=== PATIENT | male | born 1995 | race African-American/Black ===

== ENCOUNTER 2016-10-02 11:10 | Emergency (ER) | payer OTHER ==
[~2016-10-02] VITALS: Ht 177.8 cm; Wt 83.2 kg
[2016-10-02 11:21] VITALS: TEMP 36.8; Ht 177.8 cm; Wt 83.2 kg
--- NOTE | 2016-10-02 12:48 | EMERGENCY ROOM VISIT NOTE ---
History Report prepared by Kyleigh: Madelyn Kearney Under the Supervision of: Dr. Santhosh Lassiter M.D. First contact with patient: 12:13 Chief Complaint: URINARY SYMPTOMS Stated Complaint: FREQ. URINATION Nursing Triage Summary: PT PRESENTS WITH C/O FREQUENT URINATION FOR THE LAST TWO WEEKS WOULD LIKE TO SPEAK TO DOCTOR FOR FURTHER INFORMATION History of Present Illness The patient is a 21 year old male who presents to the Emergency Room with complaints of persistent urinary frequency for the past two weeks. The patient states that two months ago he was treated for chlamydia with one dose of Doxycycline. He notes that he is concerned for STDs today. The patient notes dysuria today, but denies any fever, chills, or penile drip. He denies any other symptoms. Source of History: patient Onset: two weeks Position: other (global) Quality: other (urinary frequency) Timing: other (persistent) Associated Symptoms: + urinary symptoms (dysuria), No chills, No fevers Review of Systems All systems have been listed, reviewed, and are negative other than those previously mentioned. Please see Additional Medical History Sheet. Past Medical & Surgical Medical Problems: (1) No active medical problems Family History No significant family history Social History Smoking Status: Never Smoker Smokeless Tobacco Use: No Alcohol Use: none Marital Status: single Housing Status: lives with roommate Occupation Status: [employer] student Current/Historical Medications Scheduled Doxycycline Hyclate (Doxycycline Hyclate), 1 TAB PO BID Allergies Coded Allergies: No Known Allergies (Unverified , 10/02/16) Physical Exam Vital Signs Date Time Temp Pulse Resp B/P Pulse Ox O2 Delivery O2 Flow Rate FiO2 10/02/16 13:44 54 18 115/70 96 10/02/16 12:43 50 16 112/68 97 Room Air 10/02/16 11:21 36.8 58 16 126/64 97 Room Air Physical Exam GENERAL: Patient awake, alert, oriented x 3. Patient follows commands. Patient does not appear toxic. Patient is adequately hydrated and well- nourished. SKIN: No erythema, pallor, cyanosis or rash HEENT: Normal head, pupils equal, reactive to light and accommodation. Neck: Without adenopathy, no neck vein distention. LUNGS: Clear to auscultation. No wheezes, no rales, no rhonchi. HEART: No murmurs. No gallops. No rubs ABDOMEN: No masses, no rebound, no hepatomegaly or splenomegaly. GENITALIA: Normal external appearance. No signs of active infections or lesions. Above the penis there is a small area of folliculitis. No sign of inguinal adenopathy. EXTREMITIES: No signs of trauma. No pedal or pretibial edema. No calf or thigh tenderness. NEUROLOGIC: Cranial nerves II-XII within normal limits. No gross motor sensory function deficits. Medical Decision & Procedures Laboratory Results Test 10/02/16 11:27 10/02/16 12:20 Urine Color YELLOW Urine Appearance CLEAR (CLEAR) Urine pH 6.0 (4.5-7.5) Urine Specific [place] 1.008 (1.000-1.030) Urine Protein NEG (NEG) Urine Glucose (UA) NEG (NEG) Urine Ketones NEG (NEG) Urine Occult Blood NEG (NEG) Urine Nitrite NEG (NEG) Urine Bilirubin NEG (NEG) Urine Urobilinogen NEG (NEG) Urine Leukocyte Esterase NEG (NEG) Laboratory results as stated above per my review. ED Course 1213: Past medical records reviewed. The patient was evaluated in room C11B. A complete history and physical examination was performed. 1327: I reevaluated the patient and he is resting comfortably. I discussed all the exam findings with him and I discussed the treatment plan. He verbalized complete understanding and agreement. He is ready to go home. Medical Decision Nurses notes reviewed. Medical history sheet reviewed. Differential diagnosis includes but is not limited to: Chlamydia, GC, nonspecific urethritis, UTI. The patient is here with dysuria. He was treated approximately 2 months ago with a 1 time dose of doxycycline. The patient has no purulence or adenopathy. Urinalysis appears normal. Cultures for Chlamydia and GC are pending. The patient will be given a seven-day course of doxycycline. Impression Primary Impression: Nonspecific urethritis Scribe Attestation The scribe's documentation has been prepared under my direction and personally reviewed by me in its entirety. I confirm that the note above accurately reflects all work, treatment, procedures, and medical decision making performed by me. Departure Information Dispostion Home / Self-Care Prescriptions Doxycycline Hyclate (DOXYCYCLINE HYCLATE) 100 Mg Tab 1 TAB PO BID for 7 Days, #14 TAB Prov: Santhosh Lassiter M.D. 10/02/16 Referrals No Doctor, Assigned (PCP) Forms HOME CARE DOCUMENTATION FORM, IMPORTANT VISIT INFORMATION Patient Instructions Doxycycline Monohydrate Oral tablet, ED Urethritis Infec Vs Inflam Male, My [facility] Additional Instructions Doxycycline twice a day for 7 days. A urethral culture is pending.
[2016-10-02 13:04] LABS: URINE APPEARANCE CLEAR (CLEAR); URINE BILIRUBIN NEG (NEG); URINE COLOR YELLOW; URINE NITRITE NEG (NEG); URINE SPECIFIC GRAVITY 1.008 (1.000-1.030); UROBILINOGEN NEG (NEG); ZZUR CULT IF INDIC CLEAN CATCH NO
[2016-10-02 13:07] LABS: MANUAL MICROSCOPIC REQUIRED? NO; REVIEW REQ? NO
[2016-10-02] MEDS ORDERED: DOXY100T PO (13:36)
[2016-10-02 13:44] VITALS: BP 115/70; PULSE 54; O2SAT 96
[2016-10-05 22:25] LABS: CHLAMYDIA TRACH RNA*** NOT DETECTED (NOT DETECTED); GC (NEIS GONORRHOEAE)RNA** NOT DETECTED (NOT DETECTED)
== END 2016-10-02 13:46 | disposition home or self-care (01) ==
LOC: C.EDB 11:13 → C.EDC 13:46
DX: N34.2 Other urethritis (principal)